=== PATIENT | male | born 1970 | race Two or more races ===

== ENCOUNTER 2019-09-08 21:53 | Emergency (ER) | payer MEDICAID ==
[~2019-09-08] VITALS: Ht 170.2 cm; Wt 78.0 kg
[2019-09-08] MEDS ORDERED: HYDROCODONE/ACETAMINOPHEN 5/325MG TABLET PO ONE (23:30)
[2019-09-09 00:30] VITALS: BP 109/70
== END 2019-09-09 01:51 | disposition home or self-care (01) ==
LOC: ER 21:53
DX: S02.2XXA Fracture of nasal bones, initial encounter for closed fracture (principal); Y08.89XA Assault by other specified means, initial encounter; Y93.89 Activity, other specified; Y92.89 Other specified places as the place of occurrence of the external cause; Y99.8 Other external cause status; F17.290 Nicotine dependence, other tobacco product, uncomplicated
CPT/HCPCS: 70486; 99285